=== PATIENT | female | born 1950 | race Caucasian/White ===

== ENCOUNTER 2018-05-02 12:14 | Outpatient (REF) | payer OTHER, SELFPAY ==
[2018-05-02 19:48] LABS: ALT 19 U/L (12-78); Cholesterol 156 mg/dL (50-200); HDL Cholesterol 61 mg/dL (40-60); LDL CHOLESTEROL 73 mg/dL (<100); TSH (W/Ref FT4) 0.74 uIU/mL (0.358-3.74); Triglyceride 161 mg/dL (30-150)
== END 2018-05-02 12:34 ==
LOC: NCHCN 12:14
PROVIDERS: PCP Family Medicine; Visit Provider Family Medicine
DX: Z00.00 Encounter for general adult medical examination without abnormal findings (principal); E78.5 Hyperlipidemia, unspecified
CPT/HCPCS: 80061; 83721; 84443; 84460

== ENCOUNTER 2018-05-08 00:29 | Outpatient (CLI) | payer OTHER, SELFPAY ==
--- NOTE | 2018-05-08 11:26 | DI.RAD_ITS ---
SYMPTOMS/DIAGNOSIS: LT KNEE PAIN LEFT KNEE: Three views. No priors. There is mild spurring at the posterior patella. The articular surfaces are otherwise well maintained. The bones are intact and normally mineralized. The soft tissues are unremarkable. IMPRESSION: Minimal osteoarthritis of the left knee.
--- NOTE | 2018-05-08 11:50 | DI.MAMMO_ITS ---
SYMPTOM/DIAGNOSIS: SCREENING, Z12.31 MAMMOGRAMS: Mammograms were interpreted according to the usual protocol including computer analysis with CAD system, tomosynthesis and C view imaging. Comparison with prior examinations. Breast density B. No suspicious masses or microcalcifications are seen. There is no definite evidence of malignancy. IMPRESSION: Negative mammogram. Routine screening is recommended. Category I. MQSA ASSESSMENT OF FINDINGS: Negative. Category 1. Patient will receive a letter notifying them of these results. BI-RADS category B. There are scattered areas of fibroglandular density.
== END 2018-05-08 00:49 ==
PROVIDERS: PCP Family Medicine; Visit Provider Family Medicine
DX: Z12.31 Encounter for screening mammogram for malignant neoplasm of breast (principal); M25.562 Pain in left knee; M17.12 Unilateral primary osteoarthritis, left knee
CPT/HCPCS: 73562; 77063; 77067

== ENCOUNTER 2018-08-12 09:32 | Outpatient (REF) | payer OTHER, SELFPAY ==
[2018-08-12 21:08] LABS: Abs Immature Grans 0.01 k/cumm (0.0-0.09); Absolute Basophil Count 0.03 k/cumm (0.0-0.2); Absolute Eosinophil Count 0.12 k/cumm (0.0-0.7); Absolute Lymphocyte Count 0.88 k/cumm (1.2-3.4); Absolute Monocyte Count 0.34 k/cumm (0.11-0.7); Absolute Neutrophil Count 4.31 k/cumm (1.2-6.7); Basophils % 0.5; Eosinophils % 2.1; HCT 43.1 % (36.0-46.0); HGB 14.2 g/dL (12.0-15.5); Immature Grans % 0.2; Lymphocytes % 15.5; Mean Corp. HGB Concentration 32.9 g/dL (32.0-36.0); Mean Corpuscular Hemoglobin 29.8 pg (27.0-33.0); Mean Corpuscular Volume 90.4 fL (80-95); Mean Platelet Volume 10.5 fL (8.0-11.0); Neutrophils % 75.7; Platelet Count 227 x1000/uL (130-400); RBC 4.77 m/cumm (4.00-5.20); RBC Distribution Width 13.5 % (11.7-14.6); White Blood Cell Count 5.69 k/cumm (4.4-10.8)
[2018-08-12 21:41] LABS: ALT 19 U/L (12-78); AST 13 U/L (15-37); Albumin 4.4 g/dL (3.4-5.0); Alkaline Phosphatase 79 U/L (46-116); Anion Gap 11.8 mmol/L (3-11); BUN 17 mg/dL (7-18); Bilirubin, Total 0.8 mg/dL (0.2-1.0); CO2 24.2 mmol/L (21.0-32.0); CREATININE 0.71 mg/dL (0.55-1.02); Calcium 9.2 mg/dL (8.5-10.1); Chloride 105 mmol/L (98-107); Glucose 106 mg/dL (70-100); Potassium 3.7 mmol/L (3.5-5.1); Sodium 141 mmol/L (136-145); TSH 1.13 uIU/mL (0.358-3.74); Total Protein 7.3 g/dL (6.4-8.2)
== END 2018-08-12 09:52 ==
LOC: NCHCN 09:32
PROVIDERS: PCP Nurse Practitioner Family; Visit Provider Nurse Practitioner Family
DX: R55 Syncope and collapse (principal)
CPT/HCPCS: 80053; 83735; 84443; 85025

== ENCOUNTER 2018-08-18 02:29 | Outpatient (CLI) | payer OTHER, SELFPAY ==
--- NOTE | 2018-08-26 10:06 | HOLTER_ITS ---
48-HOUR STUDY Baseline rhythm sinus. Rare single PAC. No SVT or atrial fibrillation. Occasional single PVC. No VT. Nocturnal heart rates as low as 55-60 bpm, sinus bradycardia. SYMPTOMS: Gas/ingestion noted twice during sinus rhythm 100, [address]-T wave changes. Average heart rate 85 bpm, range 58-132 bpm.
== END 2018-08-18 02:49 ==
PROVIDERS: PCP Nurse Practitioner Family; Visit Provider Nurse Practitioner Family
DX: R55 Syncope and collapse (principal); I49.3 Ventricular premature depolarization; R00.1 Bradycardia, unspecified
CPT/HCPCS: 93225

== ENCOUNTER 2018-08-25 13:24 | Outpatient (CLI) | payer OTHER, SELFPAY | END 2018-08-25 13:44 | PROVIDERS: PCP Nurse Practitioner Family; Visit Provider Nurse Practitioner Family | DX: R55 Syncope and collapse (principal); I49.3 Ventricular premature depolarization; R00.1 Bradycardia, unspecified | CPT/HCPCS: 93226 ==

== ENCOUNTER 2019-06-16 14:24 | Outpatient (REF) | payer OTHER, SELFPAY ==
[2019-06-16 19:17] LABS: HCT 43.6 % (36.0-46.0); HGB 14.4 g/dL (12.0-15.5); Mean Corpuscular Hemoglobin 29.6 pg (27.0-33.0); Mean Corpuscular Volume 89.5 fL (80-95); Platelet Count 296 x1000/uL (130-400); RBC 4.87 m/cumm (4.00-5.20); RBC Distribution Width 13.3 % (11.7-14.6); White Blood Cell Count 5.04 k/cumm (4.4-10.8)
[2019-06-16 19:42] LABS: ALT 17 U/L (14-59); AST 12 U/L (15-37); Albumin 4.6 g/dL (3.4-5.0); Alkaline Phosphatase 84 U/L (46-116); Anion Gap 11.7 mmol/L (3-11); BUN 16 mg/dL (7-18); Bilirubin, Total 0.7 mg/dL (0.2-1.0); C-Reactive Protein 0.13 mg/dL (0.0-0.3); CO2 25.3 mmol/L (21.0-32.0); CREATININE 0.79 mg/dL (0.55-1.02); Calcium 9.8 mg/dL (8.5-10.1); Chloride 104 mmol/L (98-107); Creatine Kinase 50 U/L (26-192); Glucose 90 mg/dL (74-106); Sodium 141 mmol/L (136-145); Total Protein 7.5 g/dL (6.4-8.2)
[2019-06-16 20:09] LABS: ESR 12 mm/hr (0-30)
== END 2019-06-16 14:44 ==
LOC: NCHCN 14:24
PROVIDERS: PCP Nurse Practitioner Family; Visit Provider Family Medicine
DX: M79.10 Myalgia, unspecified site (principal); R23.2 Flushing
CPT/HCPCS: 80053; 82550; 85027; 85652; 86140

== ENCOUNTER 2020-08-09 23:26 | Outpatient (REF) | payer OTHER, SELFPAY ==
[2020-08-09 15:49] LABS: ALT 19 U/L (14-59); AST 12 U/L (15-37); Albumin 4.3 g/dL (3.4-5.0); Alkaline Phosphatase 84 U/L (46-116); Anion Gap 10.2 mmol/L (3-11); BUN 18 mg/dL (7-18); Bilirubin, Total 0.5 mg/dL (0.2-1.0); C-Reactive Protein 0.09 mg/dL (0.0-0.3); CO2 25.8 mmol/L (21.0-32.0); CREATININE 0.7 mg/dL (0.55-1.02); Calcium 9.7 mg/dL (8.5-10.1); Chloride 106 mmol/L (98-107); Creatine Kinase 59 U/L (26-192); FREE T4 0.96 ng/dL (0.76-1.46); Glucose 82 mg/dL (74-106); Hemoglobin A1C 5.4 % (<5.7); Potassium 4.4 mmol/L (3.5-5.1); Sodium 142 mmol/L (136-145); Total Protein 7.3 g/dL (6.4-8.2)
[2020-08-09 16:36] LABS: Vitamin B12 261 pg/mL (193-986)
== END 2020-08-09 23:27 | disposition home or self-care (01) ==
LOC: NCHCN 23:26
PROVIDERS: PCP Nurse Practitioner Family; Visit Provider Family Medicine
DX: E78.5 Hyperlipidemia, unspecified (principal); G62.9 Polyneuropathy, unspecified; Z00.00 Encounter for general adult medical examination without abnormal findings; R79.89 Other specified abnormal findings of blood chemistry
CPT/HCPCS: 80053; 82550; 82607; 83036; 84439; 86140

== ENCOUNTER 2020-09-02 04:00 | Outpatient (CLI) | payer OTHER, SELFPAY ==
--- NOTE | 2020-09-02 08:25 | DI.MAMMO_ITS ---
Exam(s) MAMMO SCREENING EXAM: MAMMO SCREENING CLINICAL HISTORY: SCREENING, [facility], [facility],Z00.00 TECHNIQUE: Mammograms were interpreted according to the usual protocol including computer analysis w [email or web address] CAD system, tomosynthesis and C-view imaging. COMPARISON: 2011 through 2018 FINDINGS: The breasts are composed of scattered fibroglandular densities, Breast Density category B. No suspicious masses or suspicious microcalcifications are seen. No skin thickening or abnormal axillary lymph nodes are seen. There has been no significant change from prior exams. IMPRESSION: BI-RADS Category 1, Negative mammogram Yearly screening mammography is recommended. Breast Density - Category B, scattered fibroglandular densities. A negative radiographic report should not delay biopsy if a dominant or clinically suspicious mass is present. Up to ten percent of cancers are not identified on mammography. A negative report may reinforce clinical impression. Adenosis and dense breasts may obscure an underlying neoplasm. False positive reports average 6 to 10%. Patient will receive a letter notifying them of these results.
--- NOTE | 2020-09-02 08:35 | DI.DEXA_ITS ---
Exam(s) XR DEXA BONE DENSITY W/WO AARON EXAM: XR DEXA BONE DENSITY W/WO AARON CLINICAL HISTORY: SCREENING FOR OSTEOPOROSIS, [facility],Z00.00 TECHNIQUE: Ala-Septic C densitometer COMPARISON: DX DEXA BONE DENSITY WITH AARON from 04/03/2016 DX DEXA BONE DENSITY WITH AARON from 04/03/2016 FINDINGS: Lateral view of the thoracic and lumbar spine shows no evidence of compression fractures. Bone mineral density measurements of the lumbar spine correspond to a total T-score of -2.0, consist ent with osteopenia. This represents an increase in bone density 5.8 percent when compared with 2016 . L4 was excluded from the density measurements due to degenerative changes. Bone mineral density measurements of the left hip correspond to a total T-score of -1.3. The femora l neck T-score is -1.4, consistent with osteopenia.. This is not significantly changed from 2016. The left forearm bone mineral density measurements correspond to a T-score of the distal 3rd of -2.6, in the osteoporotic range. This is not significantly changed from 2016. . IMPRESSION: Stable osteopenia of the left hip. Stable osteoporosis of the left forearm. Osteopenia of the lumb ar spine with mild increase in bone density compared with the previous exam.
== END 2020-09-02 04:20 ==
PROVIDERS: PCP Nurse Practitioner Family; Visit Provider Family Medicine
DX: M85.88 Other specified disorders of bone density and structure, other site (principal); M81.0 Age-related osteoporosis without current pathological fracture; Z12.31 Encounter for screening mammogram for malignant neoplasm of breast
CPT/HCPCS: 77063; 77067; 77080

== ENCOUNTER 2022-08-30 20:31 | Emergency (ER) | payer MEDICARE, SELFPAY ==
[2022-08-30] VITALS (19 sets, daily range): BP systolic 146–161; BP diastolic 75–89; PULSE 88–104; RESP 12–31; TEMP 36.8; O2SAT 95–97
--- NOTE | 2022-08-30 20:30 | RT.EKG_ITS ---
APPROVED REPORT Exam: Resting ECG Reason for Exam: rapid heart Patient Location: E HR:99 bpm ECG Measurements Heart Rate 99 AXIS SD 152 P 17 QRSd 92 QRS 41 QT 352 T 25 QTc 453 Conclusion Sinus rhythm...normal P axis, V-rate 60- 99 sinus rhtyhm, normal axis, normal intervals non ischemic
--- NOTE | 2022-08-30 21:15 | DI.RAD_ITS ---
Exam(s) XR CHEST 2V PA LATERAL EXAM: XR CHEST 2V PA LATERAL CLINICAL HISTORY: tachycardia TECHNIQUE: 2D digital imaging was performed. COMPARISON: No exams were available for comparison FINDINGS: HEART: Normal size. Aorta: Not dilated. PULMONARY VASCULATURE: Normal. LUNGS: Clear. PLEURAL SPACE: No pleural effusion or pneumothorax. BONE:Unremarkable for age. IMPRESSION: No acute abnormality. DATA REPOSITORY: RADIATION DOSE DELIVERED:
--- NOTE | 2022-08-30 21:26 | ED.GENADUL_ITS ---
Discharge Plan Disposition Patient Disposition: Home Discharge Details Chief Complaint: Palpitatns Clinical Impression: Palpitations Primary Care Provider: Tracy Adler ED Provider: Jasson Swanson Home Meds and New Rx's Prescriptions: No Action rosuvastatin [Crestor] 5 MG tablet 5 mg PO DAILY calcium-vitamin D3-vitamin K 1 EACH tablet,chewable 1 ea PO alendronate [Fosamax] 70 MG tablet 70 mg PO wkly fluticasone propionate [Allergy Relief (fluticasone)] 50 mcg/actuation spray,suspension 1 spray CHAUNCEY DAILY ranitidine HCl 150 mg tablet 150 mg PO PRN PRN lidocaine 5 % cream 1 applic TP QID acetaminophen [Tylenol Extra Strength] 500 mg tablet 1,000 mg PO PRN PRN sertraline 25 MG tablet 50 mg PO DAILY Discharge Instructions Instructions: Heart Palpitations (ED) Additional Instructions: Please follow-up with your primary care physician. Please return to the emergency department for any worsening symptoms Medical Decision Making 72-year-old female presents with resolved palpitations, heart rate in the 120s at home, denies chest pain or shortness of breath. Did have slight nausea without vomiting. Was working outside extensively today. No history of coronary disease or thromboembolic disease. No recent travel no new medications or foods, no drug or alcohol use. Patient is nontoxic resting comfortably normoxic nontachycardic. Normotensive. Consider orthostasis versus dehydration versus resolved A-fib/flutter versus electrolyte abnormality versus less likely ACS or PE versus infectious process versus viral syndrome or UTI versus anxiety versus heat exposure. Labs chest x-ray EKG fluids antiemetics close reassessment 23: 01 Labs and imaging unremarkable. Evidence of PVC on EKG. No chest pain or shortness of breath. Heart rate ranging from 80 to 110 bpm sinus rhythm. Patient did have mocha shot coffee earlier today however that was earlier in the morning. Has been under a lot of stress regarding the health of her and multiple medical appointments. Again no chest pain or shortness of breath no presyncope. Patient would like something for anxiety as she has struggled with anxiety in the past. Given home care instructions and return HPI General Date/Time Provider Initiated Documentation: 08/30/22 20:58 . HPI Narrative: 72-year-old female presents with resolved palpitations, was cleaning up after dinner felt her heart racing took her blood pressure which was in the 140s systolic and her heart rate was noted to be in the 120s; denies chest pain or shortness of breath denies presyncope. Did have slight nausea without vomiting. Now resolved. No history of thromboembolic disease no history of coronary artery disease. Denies drug or alcohol use. No recent travel. No new foods or medication. Was working outside extensively today Related Data Home Medications Medication Instructions Recorded Confirmed sertraline 25 mg tablet 50 mg PO DAILY 11/13/12 08/30/22 alendronate 70 mg tablet (Fosamax) 70 mg PO wkly 06/06/17 calcium-vitamin D3-vitamin K 500 1 ea PO 06/06/17 mg-1,000 unit-40 mcg chewable tablet rosuvastatin 5 mg tablet (Crestor) 5 mg PO DAILY 06/06/17 08/30/22 acetaminophen 500 mg tablet 1,000 mg PO PRN PRN 09/16/18 08/30/22 (Tylenol Extra Strength) fluticasone propionate 50 1 spray intranasal DAILY 09/16/18 mcg/actuation nasal spray,suspension (Allergy Relief (fluticasone)) lidocaine 5 % topical cream 1 applic topical QID 09/16/18 ranitidine HCl 150 mg tablet 150 mg PO PRN PRN 09/16/18 08/30/22 Allergies Allergy/AdvReac Type Severity Reaction Status Date / Time codeine AdvReac Intermediate Nausea Unverified 08/30/22 20:50 General Stated Complaint: Palpitatns NAKUL: 3 Review of Systems Narrative: Review of Systems Constitutional: negative Eyes: negative ENT: negative Cardiovascular: Palpitations Respiratory: negative Gastrointestinal: negative : negative Musculoskeletal: negative Skin: negative Neurologic: negative Psych: negative PFSH All Active Problems (Updated 08/30/22 @ 23:03 by Jasson Swanson MD) Palpitations (Acute) Syncope (Chronic) Medical History (Updated 08/30/22 @ 23:03 by Jasson Swanson MD) ALLERGIC RHINNITIS/RECURRENT SINUSITIS Anxiety DEPRESSION Gastro-esophageal reflux disease with esophagitis HX OF COLON POLYPS Hyperlipidemia LUMBOSACRAL NEURIT OBESITY Osteopenia PERIPH NEURO OTHER SITUATIONAL STRESS Uterine prolapse stage 3. Surgical History Colonoscopy - [facility] 02/11/14; [facility] – [place] S/P tonsillectomy Family History Father Alcohol abuse Heart disease Lung cancer Mother COPD (chronic obstructive pulmonary disease) Social History Smoking/Tobacco Use Status: Never Smoking risk assessment performed?: Yes Alcohol Intake: current Alcohol Intake frequency: holidays/special occasions only Drug use: Never Substance use type: does not use Household members: spouse current occupation: Admin Do you feel safe at home: Yes Do you feel safe in your relationship?: Yes Exam Narrative Exam Narrative: Physical Examination General: alert, awake, cooperative, resting comfortably, no acute distress HEENT: normocephalic, atraumatic; PERRL, EOM intact, conjunctiva normal; no nasal discharge; moist mucous membranes, oral and pharyngeal mucosa normal, tolerating secretions Neck: supple, trachea midline; full ROM Chest: normal to inspection Respiratory: normal respiratory effort, speaking in full sentences, clear to auscultation, no wheezing, rales or rhonchi Cardiac: regular rate, regular rhythm, S1S2 intact, no murmurs rubs or gallops GI: abdomen soft, non-tender, non-distended; no palpable mass or he patosplenomegaly Skin: no lesions, rashes or trauma appreciated Neuro: AAOx3, normal speech, moving all extremities Psych: Appropriate mood and affect Course Vital Signs Vital signs: Vital Signs Pulse 94 H 08/30/22 20:44 Respiratory Rate 20 08/30/22 20:44 Blood Pressure 147/79 H 08/30/22 20:44 Pulse Oximetry 96 08/30/22 20:44 Pulse 94 H 08/30/22 20:44 Respiratory Rate 20 08/30/22 20:44 Respiratory Effort Normal 08/30/22 20:38 Blood Pressure 147/79 H 08/30/22 20:44 Pulse Oximetry 96 08/30/22 20:44 Oxygen Delivery Method Room Air 08/30/22 20:44 Oxygen Flow Rate 0 08/30/22 20:44 Pain Level 0 08/30/22 20:35
[2022-08-30 21:30] LABS: Abs Immature Grans 0.01 10^3/uL (0.0-0.06); Absolute Basophil Count 0.05 10^3/uL (0.0-0.2); Absolute Eosinophil Count 0.11 10^3/uL (0.0-0.7); Absolute Lymphocyte Count 1.84 10^3/uL (1.2-3.4); Absolute Monocyte Count 0.47 10^3/uL (0.1-0.8); Absolute Neutrophil Count 3.27 10^3/uL (1.2-6.7); Basophils % 0.9; Eosinophils % 1.9; HCT 41.7 % (36.0-46.0); HGB 13.8 g/dL (11.2-15.7); Immature Grans % 0.2; MCH 29.9 pg (27.0-33.0); MCHC 33.1 % (32.0-36.0); MCV 90 fL (80-95); MPV 9.2 fL (8.0-11.0); Monocytes % 8.2; Neutrophils % 56.8; Platelet Count 249 10^3/uL (130-400); RBC 4.62 10^6/uL (3.93-5.22); RDW 12.7 % (11.7-14.6); RDW-SD 42.3 fL; WBC 5.75 10^3/uL (4.4-10.8)
[2022-08-30 21:42] LABS: Bilirubin Negative (Negative); Blood Trace-lysed (Negative); Clarity Clear (Clear); Glucose Negative (Negative); Ketones Negative (Negative); Leukocyte Esterase Trace (Negative); Nitrite Negative (Negative); Specific Gravity >= 1.030 (1.005-1.025)
[2022-08-30 21:45] LABS: Bacteria Rare HPF (Negative); C & S Indicated? Yes; Casts Negative LPF (Negative); Crystals Negative HPF (Negative); Epithelial Cells Rare HPF (Negative); Mucus Negative (Negative); RBC 0-2 HPF (0-2)
[2022-08-30] MEDS: Ondansetron 4 MG/2 ML VIAL IVP (21:51)
[2022-08-30] MEDS: Normal Saline 1,000 ML 1000 ML IV (21:51)
[2022-08-30 21:56] LABS: ALT 17 U/L (14-59); AST 12 U/L (15-37); Albumin 4.2 g/dL (3.4-5.0); Alkaline Phosphatase 83 U/L (46-116); Anion Gap 7.1 mmol/L (3-11); BUN 20 mg/dL (7-18); Bilirubin, Total 0.6 mg/dL (0.2-1.0); CO2 27.9 mmol/L (21.0-32.0); CREATININE 0.7 mg/dL (0.55-1.02); Calcium 9.2 mg/dL (8.5-10.1); Chloride 106 mmol/L (98-107); Estimated GFR 91.83 (mL/min/1.73m2); Glucose 129 mg/dL (74-106); Potassium 3.4 mmol/L (3.5-5.1); Sodium 141 mmol/L (136-145); TSH (W/Ref FT4) 0.98 uIU/mL (0.36-3.74); Total Protein 7.5 g/dL (6.4-8.2); Troponin I < 50 ng/L (<or=60)
--- NOTE | 2022-08-30 22:15 | RT.EKG_ITS ---
APPROVED REPORT Exam: Resting ECG Reason for Exam: tachycardia Patient Location: E HR:101 bpm ECG Measurements Heart Rate 101 AXIS SC 212 P 66 QRSd 85 QRS 30 QT 359 T 23 QTc 467 Conclusion Sinus tachycardia...rate> 99 Ventricular premature complex...V complex w/ short R-R interval Borderline prolonged SC interval...SC >207, V-rate 91-120 Left atrial enlargement...P, P'>60mS, <-0.15mV V1
--- NOTE | 2022-08-30 22:33 | DI.VRAD_ITS ---
PROCEDURE INFORMATION: Exam: XR Chest Exam date and time: 08/30/2022 9:44 PM Age: 72 years old Clinical indication: Other: Tachycardia TECHNIQUE: Imaging protocol: Radiologic exam of the chest. Views: 2 views. COMPARISON: No relevant prior studies available. FINDINGS: Lungs: Unremarkable. No consolidation. Pleural spaces: Unremarkable. No pleural effusion. No pneumothorax. Heart/Mediastinum: Unremarkable. No cardiomegaly. Bones/joints: Unremarkable. IMPRESSION: No acute findings. Dictated and Authenticated by: Carrol Fowler MD. Ordering:ARELI Spaulding MD
[2022-08-30] MEDS: LORazepam 2 MG/ML VIAL 0.5 MG IVP (23:03)
== END 2022-08-30 23:18 | disposition home or self-care (01) ==
PROVIDERS: Emergency Provider Emergency Medicine; PCP Family Medicine
DX: R00.2 Palpitations (principal); R11.0 Nausea; F41.9 Anxiety disorder, unspecified
CPT/HCPCS: 80053; 93005; 96374; 96375; 99284; 71046; 81003; 81015; 84443; 84484; 85025; 87086; 93010; J2060; J2405

== ENCOUNTER 2022-09-26 03:02 | Outpatient (CLI) | payer MEDICARE, SELFPAY ==
--- NOTE | 2022-09-26 | DI.MAMMO_ITS ---
Exam(s) MAMMO SCREENING EXAM: MAMMO SCREENING CLINICAL HISTORY: SCREENING, Z12.31 TECHNIQUE: Bilateral full field digital CC and MLO mammographic images were obtained with 3D tomosyn thesis and utilizing computer aided detection (CAD). COMPARISON: Available for comparison. FINDINGS: Masses/Architectural Distortion: There is an asymmetric density in the outer left breast on the crani ocaudad view. It may represent overlying fibroglandular tissue, but a spot compression views request ed for further evaluation. Microcalcifications: No suspicious pleomorphic-type are seen. Skin Thickening/Nipple Retraction: None. IMPRESSION: 1. Asymmetric density in the outer left breast on the CC view. 2. Further evaluation with spot compression views requested. Limited left breast ultrasound may be i ndicated at that time. BI-RADS Category 0 - Assessment Incomplete: Need additional imaging evaluation Breast Density - Category C - Heterogeneously dense Breast density category C or D implies that the patient has dense breast tissue. Dense breast tissue is very common and is not abnormal but dense breast tissue can make it harder to find cancer on a ma mmogram. Also, dense breast tissue may increase their breast cancer risk. This information about the result of the mammogram report was provided to the patient to raise their awareness. Use this report when you speak with the patient about their risks for breast cancer, which includes their family hist ory. At that time, you may recommend for more screening tests (Ultrasound or MRI) as they might be us eful based on their risk. A negative radiographic report should not delay biopsy if a dominant or clinically suspicious mass is present. Up to ten percent of cancers are not identified on mammography. A negative report may reinforce clinical impression. Adenosis and dense breasts may obscure an underlying neoplasm. False positive reports average 6 to 10%. Patient will receive a letter notifying them of these results.
== END 2022-09-26 03:22 ==
LOC: DI 03:02
PROVIDERS: PCP Family Medicine; Visit Provider Family Medicine
DX: Z12.31 Encounter for screening mammogram for malignant neoplasm of breast (principal)
CPT/HCPCS: 77063; 77067

== ENCOUNTER 2022-10-02 01:15 | Outpatient (CLI) | payer MEDICARE, SELFPAY ==
--- NOTE | 2022-10-02 | DI.US_ITS ---
Exam(s) MAMMO SCREEN CALL BACK UNI US BREAST LT COMPLETE EXAM: MAMMO SCREEN CALL BACK UNI-LEFT AND COMPLETE LEFT BREAST ULTRASOUND CLINICAL HISTORY: F/U MAMMO, R92.8, ASYMMETRIC DENSITY. TECHNIQUE: Unilateral LEFT BREAST spot mammographic images obtained with 3D tomosynthesisand [employer] computer aided detection (CAD). . Complete LEFT breast Ultrasound was also performed, including all 4 quadrants, the retroareolar regio n, and the ipsilateral axilla. COMPARISON: Prior mammograms were reviewed. This additional imaging was performed due to findings described on the recent screening mammogram of 09/26/2022. FINDINGS: DIAGNOSTIC LEFT BREAST MAMMOGRAM: Additional mammographic views performed todayrender this area less concerning and similar in appearan ce to prior mammograms. COMPLETE LEFT BREAST ULTRASOUND: Ultrasound performed today reveals no evidence of solid or significant cystic lesions in all 4 quadra nts.. Scanning of the ipsilateral axilla reveals no significant adenopathy. IMPRESSION: 1. No radiographic evidence of malignancy in the left breast. 2. Negative complete left breast ultrasound Appropriate follow-up is to keep this patient on a yearly mammogram schedule. The patient was informed of these findings and recommendations by myself prior to leaving the departm ent today. BI-RADS Category 2 - Benign Findings Breast Density - Category B - Scattered areas of fibroglandular density Breast density Category C or D implies that the patient has dense breast tissue. Dense breast tissue can make it harder to find cancer on a mammogram. Dense breast tissue is also associated with an incr eased risk of breast cancer. This information about the result of the mammogram report was provided to the patient to raise their awareness. Use this report when you speak with the patient about their risks for breast cancer, which includes their family history. At that time, you may recommend additional screening tests (Ultrasoun d or MRI) as these tests may add significant information. A negative radiographic report should not delay biopsy if a dominant or clinically suspicious mass is present. Up to ten percent of cancers are not identified on mammography. A negative report may reinforce clinical impression. Adenosis and dense breasts may obscure an underlying neoplasm. False positive reports average 6 to 10%. Patient will receive a letter notifying them of these results.
== END 2022-10-02 01:35 ==
LOC: DI 01:16
PROVIDERS: PCP Family Medicine; Visit Provider Family Medicine
DX: Z12.31 Encounter for screening mammogram for malignant neoplasm of breast (principal); R92.8 Other abnormal and inconclusive findings on diagnostic imaging of breast
CPT/HCPCS: 76642; 77063; 77067

== ENCOUNTER → 2022-12-04 01:33 | Outpatient (CLI) | payer MEDICARE, SELFPAY ==
--- NOTE | 2022-12-04 10:30 | DI.US_ITS ---
APPROVED REPORT EXAM: Comprehensive 2D, Doppler, and color-flow Echocardiogram Patient Location: Out-Patient Lead Fire Protection Engineer: Reji Kapadia RDMS, RVT Indications: Systolic heart murmur Other Information Study Quality: Good Conclusion Normal left ventricular wall thickness and chamber size. Ejection fraction is 60%. Wall motion is n ormal Normal right ventricular size and systolic function Both atria are normal in size. There is an atrial septal aneurysm Aortic valve is mildly sclerotic and trileaflet with trace regurgitation Mildly thickened mitral leaflets, trace mitral regurgitation Normal tricuspid valve with mild regurgitation. Estimated right ventricular systolic pressure is 29 mmHg Wall motion Left Ventricle The left ventricle is normal size. The left ventricular systolic function is normal. The left ventric ular ejection fraction is within the normal range. There is normal left ventricular wall thickness. T here is normal LV segmental wall motion. LVEF is 60%. Right Ventricle The right ventricle is normal size. The right ventricular systolic function is normal. Atria The left atrium size is normal. The right atrium size is normal. Atrial septal aneurysm is present. Aortic Valve The aortic valve is mildly sclerotic Aortic valve is trileaflet. There is no aortic valvular stenosis . Trace aortic regurgitation. Mitral Valve Mildly thickened mitral leaflets No evidence of mitral valve stenosis. Trace mitral regurgitation. Tricuspid Valve The tricuspid valve is normal in structure. There is no tricuspid valve stenosis. Mild tricuspid regu rgitation. Pulmonic Valve Pulmonic valve is not well visualized. There is no pulmonic valvular stenosis. There is no pulmonic v alvular regurgitation. Great Vessels The aortic root is normal in size. The ascending aorta is normal in size. IVC is normal in size and c ollapses >50% with inspiration. Pericardium There is no pericardial effusion. 2D Dimensions IVSD d PLAX 0.78 cm F: 0.6-1.0 LVPW d PLAX 0.86 cm F: 0.6 - 1.0 LVID d PLAX 4.82 cm F: 3.8 - 5.2 LVDs 3.30 cm F: 2.2 - 3.5 Ao Root d 3.11 cm F: 2.7 - 3.3 RA Area A4C 10.12 cm2 Ao Asc Diam d 3.11 cm F: 2.3 - 3.1 LV EF Teichholz 58.3 % FS 30.80 % M-Mode TAPSE 2.39 cm (M/F) >1.7 LV Diastology MV E' medial 0.074 (>0.07 m/s) E/A Ratio 0.6 LV E/e MED 8.93 (<14) MV E Vmax 0.66 (0.4-1.3 m/s) MV E' lateral 0.076 (>0.1 m/s) MV A Vmax 1.05 (0.4-1.3 m/s) LV E/e LAT 8.76 (<14) MV E/E' medial 8.93 MV E/E' lateral 8.76 MV (E/E' average) 8.84 Aortic Valve LVOT Vmax 0.87 m/s AoV Area Vmax 1.90 cm2 LVOT Peak Grad 3.1 mmHg LVOT Mean Grad 1.8 mmHg LVOT Diam s 2.10 cm AoV Vmax 1.63 m/s Velocity Ratio 0.53 AoV Peak Grad 10.6 mmHg LVOT SV 84.59 mL AoV Mean Grad 6.3 mmHg AoV Area VTI 2.16 cm2 Mitral Valve MV Vmax TIPS 0.99 m/s MV Mean Grad 1.4 (<2mmHg) MV VTI 0.300 m Pulmonary Valve PV Mean Grad 1.2 mmHg RVOT Peak Gr. 1.17 mmHg RVOT Mean Gr. 0.55 mmHg RVOT VTI 0.131 m RVOT Vmax 0.54 m/s Tricuspid Valve TR Peak Grad 25.6 mmHg TR Vmax 2.53 m/s RA Pressure 3.00 mmHg RVSP (TR) 28.6 mmHg
== END ==
PROVIDERS: PCP Family Medicine; Visit Provider Family Medicine
DX: R01.1 Cardiac murmur, unspecified (principal)
CPT/HCPCS: 93306

== ENCOUNTER 2023-09-13 18:05 | Outpatient (REF) | payer MEDICARE, SELFPAY | END 2023-09-13 18:06 | disposition home or self-care (01) | LOC: LBN 18:05 | PROVIDERS: PCP Family Medicine; Visit Provider Nurse Practitioner Family | DX: J02.9 Acute pharyngitis, unspecified (principal) | CPT/HCPCS: 87070 ==

== ENCOUNTER 2023-09-19 10:37 | Outpatient (REF) | payer MEDICARE, SELFPAY ==
[2023-09-19 16:12] LABS: HCT 42.8 % (36.0-46.0); HGB 14.1 g/dL (11.2-15.7)
[2023-09-19 17:02] LABS: ALT 18 U/L (14-59); AST 11 U/L (15-37); Albumin 4.4 g/dL (3.4-5.0); Alkaline Phosphatase 72 U/L (46-116); BUN 15 mg/dL (7-18); Bilirubin, Total 0.6 mg/dL (0.2-1.0); CREATININE 0.8 mg/dL (0.55-1.02); Calcium 9.6 mg/dL (8.5-10.1); Calculated LDL 70 mg/dL (<100); Chloride 106 mmol/L (98-107); Cholesterol 176 mg/dL (<200); Estimated GFR 77.75 (mL/min/1.73m2); Glucose 95 mg/dL (74-106); HDL Cholesterol 75 mg/dL (40-60); Potassium 4.2 mmol/L (3.5-5.1); Sodium 143 mmol/L (136-145); TSH 1.01 uIU/Ml (0.36-3.74); Total Protein 7.4 g/dL (6.4-8.2); Triglyceride 155 mg/dL (<150); Vitamin B12 402 pg/mL (193-986)
[2023-09-19 17:19] LABS: Hemoglobin A1C 5.7 % (<5.7)
[2023-09-19 22:23] LABS: Rheumatoid Factor <8.6 IU/mL (<12.0)
== END 2023-09-19 10:38 | disposition home or self-care (01) ==
LOC: NCHCN 10:37
PROVIDERS: PCP Family Medicine; Visit Provider Family Medicine
DX: E78.5 Hyperlipidemia, unspecified (principal); Z00.00 Encounter for general adult medical examination without abnormal findings
CPT/HCPCS: 80053; 80061; 82607; 83036; 84443; 85014; 85018; 86431

== ENCOUNTER 2024-03-27 00:12 | Outpatient (CLI) | payer MEDICARE, SELFPAY ==
--- NOTE | 2024-03-27 15:48 | DI.MAMMO_ITS ---
Exam(s) MAMMO SCREENING EXAM: MAMMO SCREENING CLINICAL HISTORY: SCREENING,Z12.31. TECHNIQUE: Bilateral full field digital CC and MLO mammographic images were obtained with 3D tomosyn thesis and utilizing computer aided detection (CAD). COMPARISON: Prior mammograms were reviewed. FINDINGS: There has been no significant change in the appearance and distribution of the fibroglandular tissue. There are no new spiculated masses nor malignant appearing microcalcification groups. There is no significant architectural distortion nor skin thickening-retraction. IMPRESSION: No radiographic evidence of malignancy. BI-RADS Category 1 - Negative Breast Density - Category B - Scattered areas of fibroglandular density Breast density Category C or D implies that the patient has dense breast tissue. Dense breast tissue can make it harder to find cancer on a mammogram. Dense breast tissue is also associated with an incr eased risk of breast cancer. This information about the result of the mammogram report was provided to the patient to raise their awareness. Use this report when you speak with the patient about their risks for breast cancer, which includes their family history. At that time, you may recommend additional screening tests (Ultrasoun d or MRI) as these tests may add significant information. A negative radiographic report should not delay biopsy if a dominant or clinically suspicious mass is present. Up to ten percent of cancers are not identified on mammography. A negative report may reinforce clinical impression. Adenosis and dense breasts may obscure an underlying neoplasm. False positive reports average 6 to 10%. Patient will receive a letter notifying them of these results.
== END 2024-03-27 00:32 ==
LOC: DI 00:13
PROVIDERS: PCP Family Medicine; Visit Provider Family Medicine
DX: Z12.31 Encounter for screening mammogram for malignant neoplasm of breast (principal)
CPT/HCPCS: 77063; 77067

== ENCOUNTER → 2024-05-12 08:22 | Outpatient (BNVA) | payer MEDICARE, SELFPAY | PROVIDERS: PCP Family Medicine; Referring Provider Family Medicine; Visit Provider Psychiatry & Neurology Neurology | DX: G62.9 Polyneuropathy, unspecified (principal); E53.8 Deficiency of other specified B group vitamins; R73.03 Prediabetes | CPT/HCPCS: 99215 ==

== ENCOUNTER 2024-10-09 15:07 | Outpatient (REF) | payer MEDICARE, SELFPAY ==
[2024-10-09 19:28] LABS: ALT 21 U/L (14-59); AST 15 U/L (15-37); Albumin 4.3 g/dL (3.4-5.0); Alkaline Phosphatase 94 U/L (46-116); Anion Gap 7.9 mmol/L (3-11); BUN 15 mg/dL (7-18); Bilirubin, Total 0.6 mg/dL (0.2-1.0); CO2 28.1 mmol/L (21.0-32.0); CREATININE 0.7 mg/dL (0.55-1.02); Calcium 9.5 mg/dL (8.5-10.1); Chloride 105 mmol/L (98-107); Glucose 98 mg/dL (74-106); Potassium 4.1 mmol/L (3.5-5.1); Sodium 141 mmol/L (136-145); Total Protein 7.2 g/dL (6.4-8.2)
[2024-10-09 20:00] LABS: Hemoglobin A1C 5.6 % (<5.7)
[2024-10-14 18:03] LABS: 1,25-Dihydroxyvitamin D 39 pg/mL (18-78)
== END 2024-10-09 15:08 | disposition home or self-care (01) ==
LOC: NCHCN 15:07
PROVIDERS: PCP Family Medicine; Visit Provider Family Medicine
DX: Z00.00 Encounter for general adult medical examination without abnormal findings (principal)
CPT/HCPCS: 80053; 82652; 83036

== ENCOUNTER 2025-03-30 15:11 | Outpatient (REF) | payer MEDICARE, SELFPAY ==
[2025-03-30 16:05] LABS: HCT 43.1 % (36.0-46.0); HGB 13.9 g/dL (11.2-15.7)
[2025-03-30 16:20] LABS: TSH 1.19 uIU/mL (0.55-4.78); Vitamin B12 386 pg/mL (211-911)
[2025-03-30 16:21] LABS: Ferritin 70 ng/mL (7-271)
== END 2025-03-30 15:12 | disposition home or self-care (01) ==
LOC: NCHCN 15:11
PROVIDERS: PCP Family Medicine; Visit Provider Family Medicine
DX: L65.9 Nonscarring hair loss, unspecified (principal)
CPT/HCPCS: 82607; 82728; 84443; 85014; 85018

== ENCOUNTER → 2025-04-01 01:02 | Outpatient (CLI) | payer MEDICARE, SELFPAY ==
--- NOTE | 2025-04-01 | DI.RAD_ITS ---
Exam(s) XR HIP PELVIS ADULT BL EXAM: XR HIP PELVIS ADULT BL CLINICAL HISTORY: SAHIL HIP PAIN, M25.551, M25.552. TECHNIQUE: 2D digital imaging was performed. Three views. COMPARISON: None FINDINGS: BONES: No acute fracture is present. No bony destructive lesion is seen. JOINTS: No dislocation present. Hip joint spaces are maintained. There is mild bilateral acetabular spurring. The SI joints show mild spurring. There are more advanced degenerative changes in the lower lumbar spine. The pubic symphysis is unremarkable. SOFT TISSUE: Normal. IMPRESSION: Mild degenerative changes of both hips. DATA REPOSITORY: RADIATION DOSE DELIVERED:
--- NOTE | 2025-04-01 | DI.DEXA_ITS ---
Exam(s) XR DEXA BONE DENSITY W/WO AARON EXAM: XR DEXA BONE DENSITY W/WO AARON CLINICAL HISTORY: SCREENING OSTEOPOROSIS, Z78.0 ASYMPATOMIC MENOPAUSAL STATE TECHNIQUE: [employer] C densitometer analysis of left hip, lumbar spine and left forearm. Lateral survey image of the thoracic and lumbar spine. COMPARISON: DX DEXA BONE DENSITY WITH AARON from 04/03/2016 CR XR DEXA BONE DENSITY W/WO AARON from 09/02/2020 CR XR HIP PELVIS ADULT BL from 04/01/2025 FINDINGS: Lateral view of the thoracic and lumbar spine shows no evidence of compression fractures. Bone mineral density measurements of the lumbar spine correspond to a total T- score of -1.6, in the osteopenic range. This represents an 8.0 percent increase from 2016. Bone mineral density measurements of the left hip correspond to a total T-score of -1.5. This represents a 4.7 percent decrease from 2016. The femoral neck T- score is -2.3, in the osteopenic range. Theleft forearm bone mineral density measurements correspond to a T-score of the distal 3rd of -2.9, in the osteoporotic range. This is not significantly changed from the previous exams. IMPRESSION: Osteopenia of the spine and hip. Osteoporosis of the forearm.
--- NOTE | 2025-04-01 15:20 | DI.MAMMO_ITS ---
Exam(s) MAMMO SCREENING EXAM: MAMMO SCREENING CLINICAL HISTORY: SCREENING, Z12.31 TECHNIQUE: Mammograms were interpreted according to the usual protocol including computer analysis with CAD system, tomosynthesis and C-view imaging. COMPARISON: 2015 through 2023 FINDINGS: The breasts are composed of scattered fibroglandular densities, Breast Density category B. No suspicious masses or suspicious microcalcifications are seen. No skin thickening or abnormal axillary lymph nodes are seen. There has been no significant change from prior exams. IMPRESSION: BI-RADS Category 1, Negative mammogram Yearly screening mammography is recommended. Breast Density - Category B - There are scattered areas of fibroglandular density. Breast density Category C or D implies that the patient has dense breast tissue. Dense breast tissue can make it harder to find cancer on a mammogram. Dense breast tissue is also associated with an increased risk of breast cancer. This information about the result of the mammogram report was provided to the patient to raise their awareness. Use this report when you speak with the patient about their risks for breast cancer, which includes their family history. At that time, you may recommend additional screening tests (Ultrasound or MRI) as these tests may add significant information. A negative radiographic report should not delay biopsy if a dominant or clinically suspicious mass is present. Up to ten percent of cancers are not identified on mammography. A negative report may reinforce clinical impression. Adenosis and dense breasts may obscure an underlying neoplasm. False positive reports average 6 to 10%. Patient will receive a letter notifying them of these results.
== END ==
LOC: DI 01:02
PROVIDERS: PCP Family Medicine; Visit Provider Family Medicine
DX: Z12.31 Encounter for screening mammogram for malignant neoplasm of breast (principal); Z13.820 Encounter for screening for osteoporosis; Z78.0 Asymptomatic menopausal state; M25.551 Pain in right hip; M25.552 Pain in left hip; M16.0 Bilateral primary osteoarthritis of hip
CPT/HCPCS: 73521; 77063; 77067; 77080